=== PATIENT | female | born 1975 | race Caucasian/White ===

== ENCOUNTER 2016-07-01 11:51 | Emergency (ER) | payer OTHER ==
[~2016-07-01] VITALS: Ht 165.1 cm; Wt 78.0 kg
[~2016-07-01 11:51] MED LIST: 'XANAX1 MG PO; ALBUTEROL0.09 MG/A2 IH; AMOXICILLIN500 M2 PO; ANAPROX DS550 MG PO; AUGMENTIN 875 M1 TAB PO; AUGMENTIN 875875 MG PO; BENADRYL25 MG PO; CIPRODEX 0.3%-7.5 ML OT; CIPROFLOXACIN500 MG PO; CLARITIN10 MG PO; CLINDAMYCIN HC300 MG PO; COMPAZINE10 MG PO; DARVOCET N 1001 TAB PO; DIAZEPAM10 M1 PO; DOLOBID500 MG PO; DOXYCYCLINE MO100 MG PO; DURICEF500 MG PO; FLEXERIL10 MG PO; FLEXERIL5 MG PO; HYDROCODONE BIT1 T11 PO; HYDROXYZINE PAM50 MG PO; IBU800 M1 PO; KENALOG0.1% TP; LAMOTRIGINE25 M1 PO; LEVAQUIN750 MG PO; LOMOTIL 0.025 M1 TAB PO; MACROBID100 M1 PO; MEDROL DOSEPAK4 MG PO; MOTRIN800 MG PO; NAPROSYN500 MG PO; NORCO 325 MG-51 TAB PO; NORFLEX100 MG PO; PHENERGAN W/CO120 ML PO; PROZAC20 MG PO; Phenergan25 MG PO; QUETIAPINE FUMA50 M1 PO; SOMA350 MG PO; TESSALON PERLE200 MG PO; TRAMADOL HCL50 MG PO; ULTRAM50 MG PO; VITAMIN D1000 IU PO; ZANTAC150 MG PO; ZITHROMAX Z PA250 MG PO; ZYRTEC10 MG PO
[2016-07-01] MEDS ORDERED: KEFLEX500 M1 PO (12:36)
[2016-07-01] MEDS ORDERED: Motrin,Rufen800 MG PO (12:36)
== END 2016-07-01 12:46 | disposition home or self-care (01) ==
LOC: ED 11:51
DX: K08.89 Other specified disorders of teeth and supporting structures (principal); F17.200 Nicotine dependence, unspecified, uncomplicated; Z79.899 Other long term (current) drug therapy

== ENCOUNTER 2016-08-12 13:35 | Emergency (ER) | payer OTHER ==
[~2016-08-12] VITALS: Ht 165.1 cm; Wt 78.0 kg
[~2016-08-12 13:35] MED LIST changes: +KEFLEX500 M1 PO; +Motrin,Rufen800 MG PO
[2016-08-12] MEDS ORDERED: PREDNISONE10 MG PO (14:00)
== END 2016-08-12 14:11 | disposition home or self-care (01) ==
LOC: ED 13:35
DX: M54.10 Radiculopathy, site unspecified (principal); R03.0 Elevated blood-pressure reading, without diagnosis of hypertension; F17.200 Nicotine dependence, unspecified, uncomplicated; Z98.890 Other specified postprocedural states; Z98.51 Tubal ligation status; Z79.899 Other long term (current) drug therapy

== ENCOUNTER 2016-10-08 10:18 | Emergency (ER) | payer OTHER ==
[~2016-10-08] VITALS: Ht 165.1 cm; Wt 65.8 kg
[~2016-10-08 10:18] MED LIST changes: +PREDNISONE10 MG PO
== END 2016-10-08 11:15 | disposition home or self-care (01) ==
LOC: ED 10:18
DX: K59.00 Constipation, unspecified (principal); R10.9 Unspecified abdominal pain; F17.200 Nicotine dependence, unspecified, uncomplicated

== ENCOUNTER 2017-02-17 17:49 | Inpatient (IN) | payer OTHER ==
[~2017-02-17] VITALS: Ht 165.1 cm; Wt 79.9 kg
--- NOTE | ~2017-02-17 | EKG ---
[place], [place] ELECTROCARDIOGRAM REPORT NAME: BONNIE SCHNEIDER UNIT #: [id number] ROOM: 508 DOCTOR: MIRIAN GREEN,RAMA BIRTHDATE: [birth year] DOS: 02/17/2017 TIME: ____ hours. IMPRESSION: 1. Sinus rhythm. 2. Anterior ST-T changes, consider ischemia. RAMA VELA MD CM:[id number]:ELECTROCARDIOGRAM REPORT [id number] RAMA VELA MD
[2017-02-17 17:50] VITALS: BP 118/74
--- NOTE | 2017-02-17 18:34 | NUR ---
PT TO CT SCAN
[2017-02-17 18:52] LABS: BILIRUBIN NEGATIVE (NEGATIVE); BLOOD 2+ (NEGATIVE); CLARITY CLOUDY (CLEAR); COLOR YELLOW (YELLOW); GLUCOSE NEGATIVE (NEGATIVE); KETONE TRACE (NEGATIVE); LEUKO ESTERASE 2+ (NEGATIVE); NITRITE POSITIVE (NEGATIVE); PH 5.5 (5.0-9.0); SPECIFIC GRAVITY >= 1.030 (1.005-1.030)
[2017-02-17 18:59] VITALS: BP 127/74
[2017-02-17 18:59] LABS: BACTERIA 4+; MUCOUS TRACE; WBC TNTC wbc/hpf (0-5)
[2017-02-17 19:07] LABS: URINE AMPHETAMINES < 1000 (1000ng/ml); URINE BARBITURATES < 200 (200ng/ml); URINE BENZODIAZEPINES < 200 (200ng/ml); URINE CANNABINOIDS (THC) > 50 (50ng/ml); URINE COCAINE > 300 (300ng/ml); URINE METHADONE < 300 (300ng/ml); URINE OPIATES < 300 (300ng/ml)
[2017-02-17 19:14] LABS: URINE PHENCYCLIDINE < 25 (25ng/ml)
[2017-02-17 19:16] LABS: BASO % 0.4 % (0.0-1.0); EOS % 0.4 % (1.0-4.0); HEMATOCRIT 43.8 % (37.0-47.0); HEMOGLOBIN 14.7 g/dl (12.0-16.0); LYMPH # 2.5 10*3/uL (1.3-4.4); LYMPH % 22.2 % (27.0-41.0); MEAN CELL VOLUME 91.6 fl (81.0-99.0); MEAN CORPUSCULAR HGB 30.8 pg (27.0-31.0); MEAN CORPUSCULAR HGB CONC 33.6 g/dl (33.0-37.0); MEAN PLATELET VOLUME 10.9 fl (9.6-12.3); MONO # 0.6 10*3/uL (0.1-1.0); MONO % 5.3 % (3.0-9.0); NEUT # 7.9 10*3/uL (2.3-7.9); NEUT % 71.4 % (47.0-73.0); PLATELET COUNT AUTOMATED 244 10*3/uL (130-400); RED BLOOD COUNT 4.78 10*6/uL (4.10-5.10); RED CELL DISTRI WIDTH 13.3 % (0-14.5); WHITE BLOOD COUNT 11.1 10*3/uL (4.8-10.8)
[2017-02-17 19:33] LABS: ALKALINE PHOSPHATASE 110 U/L (45-117); BUN 12 mg/dl (7-24); CHLORIDE 103 mmol/L (98-107); POTASSIUM 3.5 mmol/L (3.5-5.1); SGOT/AST 14 IU/L (3-35); SGPT/ALT 17 U/L (12-78); SODIUM 138 mmol/L (136-145); TOTAL PROTEIN 7.8 gm/dL (6.4-8.2)
[2017-02-17 19:35] LABS: TROPONIN I < 0.015 ng/ml (<0.045)
[2017-02-17 19:57] VITALS: BP 130/63
[2017-02-17 20:28] VITALS: BP 116/70
--- NOTE | 2017-02-17 20:28 | NUR ---
[facility] 41, admitted to , under the services of CESILIA Bland DO with a diagnosis of UTI AND NEAR SYNCOPAL EPIOSODE. Chief complaint is PASSED OUT AT THE TABLE,. Patient arrived via ambulatory from ER. Monitor applied. Initial assessment completed. Vital signs taken and recorded. CESILIA BLAND DO notified of admission to the unit. Orders received. See assessment for past medical history, medications and allergies. Patient and/or family oriented to unit. [facility] visitation policy reviewed. Clothing/patient valuable form completed. CATALINA ALONZO
--- NOTE | 2017-02-17 20:35 | NUR ---
SPOKE WITH DR. ROMERO AT THIS TIME . INFOMRED DR. ROMERO THAT PER PATIENT SHE HAD NOT SEEN A PHYSICIAN SINCE DR. José Miguel FLORES RETIRED AND THAT SHE HAS NOT TAKEN ANY MEDICATIONS FOR SEVERLA MONTHS AND DOES NOT REMEBER WHAT SHE HAD TAKEN BEFORE.
--- NOTE | 2017-02-17 23:00 | NUR ---
ORTHOS DONE AT THIS TIME, NEGATIVE. PATIENT IS PLEASANT AND COOPERATIVE WITH CARE, RESPIRATIONS EASY/REG. NO SXS OF DISTRESS NOTED. FLUIDS MAINTAINED PER ORDER. CALL LIGHT IS IN REACH
[2017-02-18] VITALS: BP 100/59
--- NOTE | 2017-02-18 05:00 | NUR ---
SLEEPING, NO SXS OF DISTRESS. RESPIRATIONS EASY/REG. FLUIDS MAINTAINED PER ORDER. CALL LIGHT IS IN REACH.
[2017-02-18 05:58] LABS: BASO % 0.3 % (0.0-1.0); EOS # 0.2 10*3/uL (0.0-0.4); HEMATOCRIT 40.5 % (37.0-47.0); HEMOGLOBIN 13.6 g/dl (12.0-16.0); LYMPH # 3.6 10*3/uL (1.3-4.4); LYMPH % 38.3 % (27.0-41.0); MEAN CORPUSCULAR HGB 30.9 pg (27.0-31.0); MEAN CORPUSCULAR HGB CONC 33.6 g/dl (33.0-37.0); MEAN PLATELET VOLUME 10.5 fl (9.6-12.3); MONO # 0.8 10*3/uL (0.1-1.0); MONO % 8.2 % (3.0-9.0); NEUT # 4.8 10*3/uL (2.3-7.9); NEUT % 50.9 % (47.0-73.0); PLATELET COUNT AUTOMATED 214 10*3/uL (130-400); RED CELL DISTRI WIDTH 13.6 % (0-14.5); WHITE BLOOD COUNT 9.4 10*3/uL (4.8-10.8)
--- NOTE | 2017-02-18 06:20 | NUR ---
PATIENTS BROUGHT OUT TWO PILLS AND STATED "I THINK I KNOW WHAT MADE HER PASS OUT" HE FOUND THEM IN HER PANTS POCKET AND SAYS THEY ARE HIS BROTHERS SEROQUEL THAT SHE USED TO BE ON A WHILE AGO AND STOPPED TAKING. HE THINKS SHE TOOK THEM AND THATS WHAT MADE HER PASS OUT. THE PATIENT RELATIONS MANAGER WAS MADE AWARE AND STATED TO SEND THEM TO PHARMACY WHEN THEY OPEN SO THEY CAN ID THEM. WILL PASS ALONG TO NEXT SHIFT AND THEY WILL HAVE TO CALL THE DR WHEN PHARMACY IS ABLE TO IDENTIFY THE PILLS.
[2017-02-18 06:26] LABS: ALBUMIN 3.3 gm/dl (3.1-4.5); BUN 12 mg/dl (7-24); CHLORIDE 108 mmol/L (98-107); POTASSIUM 3.8 mmol/L (3.5-5.1); SODIUM 142 mmol/L (136-145)
[2017-02-18 06:32] LABS: INTERNATIONAL NORM RATIO 1.1 (2.0-3.5)
[2017-02-18 06:35] LABS: ALKALINE PHOSPHATASE 94 U/L (45-117); CHOLESTEROL 140 mg/dL (<200); CREATININE 0.87 mg/dL (0.55-1.02); FREE T4 1.08 ng/dl (0.76-1.46); HDL CHOLESTEROL 43 mg/dl (40-60); LDL CHOLESTEROL 83 mg/dL (9-159); PHOSPHOROUS 3.9 mg/dL (2.5-4.9); SGOT/AST 9 IU/L (3-35); SGPT/ALT 15 U/L (12-78); THYROID STIM HORMONE (HS) 0.374 uIU/ml (0.358-4.75); TOTAL PROTEIN 6.5 gm/dL (6.4-8.2); TRIGLYCERIDES 68 mg/dl (<150); VLDL CHOLESTEROL 14 mg/dL (6-40)
[2017-02-18 08:00] VITALS: BP 101/58
--- NOTE | 2017-02-18 08:00 | NUR ---
PATIENT IS SITTING UP IN BED EATING BREAKFAST. FAMILY MEMBERS ARE AT BEDSIDE. PATIENT DENIES DISCOMFORT AT THIS TIME. CALL LIGHT IS WITHIN REACH AND BED IS IN LOW POSITION.
[2017-02-18] MEDS ORDERED: VITAMIN D-32000 UNI1 PO (11:29)
[2017-02-18] MEDS ORDERED: DOXYCYCLINE100 M3 PO (11:29)
--- NOTE | 2017-02-18 12:43 | NUR ---
Discharge instructions reviewed with patient/family. Patient receptive and verbalizes understanding. Follow-up care arranged. Written instructions given to patient/family. [facility] REMOVED INTACT. MONITOR REMOVED. PATIENT AMBULATED OFF FLOOR. IRINEO BRIGHT
== END 2017-02-18 12:42 | disposition home or self-care (01) | DRG 312 ==
LOC: ED 17:49 → 5E 19:40 → EDHOLD 19:40 → 5E 19:49
PROVIDERS: Family Medicine; Nurse Practitioner Family; ADMIT Internal Medicine
DX: R55 Syncope and collapse (principal); N30.01 Acute cystitis with hematuria; D72.829 Elevated white blood cell count, unspecified; R73.9 Hyperglycemia, unspecified; E80.6 Other disorders of bilirubin metabolism; F14.10 Cocaine abuse, uncomplicated; F12.10 Cannabis abuse, uncomplicated; F17.200 Nicotine dependence, unspecified, uncomplicated; Z98.51 Tubal ligation status; Z82.49 Family history of ischemic heart disease and other diseases of the circulatory system; Z79.899 Other long term (current) drug therapy; Z79.2 Long term (current) use of antibiotics

== ENCOUNTER 2017-07-13 16:34 | Inpatient (IN) | payer OTHER ==
[2017-07-13] VITALS (7 sets, daily range): BP systolic 103–133; BP diastolic 52–87
[~2017-07-13] VITALS: Ht 165.1 cm; Wt 81.8 kg
[~2017-07-13 16:34] MED LIST changes: +DOXYCYCLINE100 M3 PO; +VITAMIN D-32000 UNI1 PO
[2017-07-13 16:57] LABS: BASO % 0.5 % (0.0-1.0); EOS # 0.1 10*3/uL (0.0-0.4); EOS % 0.9 % (1.0-4.0); HEMATOCRIT 41.4 % (37.0-47.0); HEMOGLOBIN 14.1 g/dl (12.0-16.0); LYMPH # 2.2 10*3/uL (1.3-4.4); LYMPH % 33.6 % (27.0-41.0); MEAN CORPUSCULAR HGB 31.7 pg (27.0-31.0); MEAN CORPUSCULAR HGB CONC 34.1 g/dl (33.0-37.0); MEAN PLATELET VOLUME 10.2 fl (9.6-12.3); MONO # 0.4 10*3/uL (0.1-1.0); MONO % 6.1 % (3.0-9.0); NEUT # 3.8 10*3/uL (2.3-7.9); NEUT % 58.7 % (47.0-73.0); PLATELET COUNT AUTOMATED 228 10*3/uL (130-400); RED BLOOD COUNT 4.45 10*6/uL (4.10-5.10); RED CELL DISTRI WIDTH 13.2 % (0-14.5); WHITE BLOOD COUNT 6.4 10*3/uL (4.8-10.8)
[2017-07-13 17:06] LABS: ACT PARTIAL THROMBO TIME 22.1 SECONDS (20.8-31.5); INTERNATIONAL NORM RATIO 1.1 (2.0-3.5)
[2017-07-13 17:15] LABS: ALBUMIN 3.9 gm/dl (3.1-4.5); ALKALINE PHOSPHATASE 107 U/L (45-117); BUN 10 mg/dl (7-24); CHLORIDE 110 mmol/L (98-107); CREATININE 0.79 mg/dL (0.55-1.02); POTASSIUM 4.2 mmol/L (3.5-5.1); SGOT/AST 11 IU/L (3-35); SGPT/ALT 16 U/L (12-78); SODIUM 144 mmol/L (136-145); TOTAL PROTEIN 7.2 gm/dL (6.4-8.2)
[2017-07-13 17:16] LABS: TROPONIN I < 0.015 ng/ml (<0.045)
[2017-07-14 00:16] VITALS: BP 116/81
[2017-07-14 06:09] LABS: BASO % 0.4 % (0.0-1.0); EOS # 0.2 10*3/uL (0.0-0.4); EOS % 2.7 % (1.0-4.0); HEMOGLOBIN 13.6 g/dl (12.0-16.0); LYMPH # 3.2 10*3/uL (1.3-4.4); LYMPH % 45.9 % (27.0-41.0); MEAN CELL VOLUME 94.5 fl (81.0-99.0); MEAN CORPUSCULAR HGB 31.3 pg (27.0-31.0); MEAN CORPUSCULAR HGB CONC 33.2 g/dl (33.0-37.0); MEAN PLATELET VOLUME 10.1 fl (9.6-12.3); MONO # 0.6 10*3/uL (0.1-1.0); MONO % 8.4 % (3.0-9.0); NEUT % 42.5 % (47.0-73.0); PLATELET COUNT AUTOMATED 210 10*3/uL (130-400); RED BLOOD COUNT 4.34 10*6/uL (4.10-5.10); RED CELL DISTRI WIDTH 13.2 % (0-14.5); WHITE BLOOD COUNT 7.1 10*3/uL (4.8-10.8)
[2017-07-14 06:38] LABS: ALBUMIN 3.5 gm/dl (3.1-4.5); ALKALINE PHOSPHATASE 101 U/L (45-117); BILIRUBIN, DIRECT 0.2 mg/dL (0.0-0.2); BUN 11 mg/dl (7-24); CHLORIDE 108 mmol/L (98-107); CHOLESTEROL 129 mg/dL (<200); CREATININE 0.85 mg/dL (0.55-1.02); HDL CHOLESTEROL 43 mg/dl (40-60); LDL CHOLESTEROL 72 mg/dL (9-159); PHOSPHOROUS 5.1 mg/dL (2.5-4.9); POTASSIUM 3.5 mmol/L (3.5-5.1); SGOT/AST 15 IU/L (3-35); SGPT/ALT 24 U/L (12-78); SODIUM 143 mmol/L (136-145); TOTAL PROTEIN 6.6 gm/dL (6.4-8.2); TRIGLYCERIDES 69 mg/dl (<150); VLDL CHOLESTEROL 14 mg/dL (6-40)
[2017-07-14 08:00] VITALS: BP 114/69
[2017-07-14 11:06] LABS: VITAMIN D, 25-HYDROXY 32.7 ng/mL (30-100)
[2017-07-14 12:00] VITALS: BP 108/61
[2017-07-14 13:59] LABS: BILIRUBIN NEGATIVE (NEGATIVE); BLOOD 2+ (NEGATIVE); CLARITY CLOUDY (CLEAR); COLOR YELLOW (YELLOW); GLUCOSE NEGATIVE (NEGATIVE); KETONE TRACE (NEGATIVE); LEUKO ESTERASE 2+ (NEGATIVE); NITRITE POSITIVE (NEGATIVE); PH 5.5 (5.0-9.0); SPECIFIC GRAVITY 1.025 (1.005-1.030); UROBILINOGEN 0.2 E.U./dl (0.2-1.0)
[2017-07-14 14:07] LABS: URINE AMPHETAMINES < 1000 (1000ng/ml); URINE BARBITURATES < 200 (200ng/ml); URINE BENZODIAZEPINES < 200 (200ng/ml); URINE CANNABINOIDS (THC) > 50 (50ng/ml); URINE COCAINE < 300 (300ng/ml); URINE METHADONE < 300 (300ng/ml); URINE OPIATES < 300 (300ng/ml)
[2017-07-14 14:08] LABS: URINE PHENCYCLIDINE < 25 (25ng/ml)
[2017-07-14 14:15] LABS: BACTERIA 4+; CALCIUM OXALATE CRYSTALS 2+; EPITHELIAL CELLS 25-30; WBC 31-40 wbc/hpf (0-5)
== END 2017-07-14 14:56 | disposition home or self-care (01) | DRG 392 ==
LOC: ED 16:34 → EDHOLD 20:48 → 5E 20:48
PROVIDERS: Emergency Medicine; Internal Medicine Nephrology
DX: K21.9 Gastro-esophageal reflux disease without esophagitis (principal); E83.41 Hypermagnesemia; R07.89 Other chest pain; I25.10 Atherosclerotic heart disease of native coronary artery without angina pectoris; F17.200 Nicotine dependence, unspecified, uncomplicated; I10 Essential (primary) hypertension; F17.210 Nicotine dependence, cigarettes, uncomplicated; R06.82 Tachypnea, not elsewhere classified; R00.1 Bradycardia, unspecified; E80.6 Other disorders of bilirubin metabolism; E66.9 Obesity, unspecified; Z68.26 Body mass index [BMI] 26.0-26.9, adult; Z82.49 Family history of ischemic heart disease and other diseases of the circulatory system; Z71.6 Tobacco abuse counseling; Z98.51 Tubal ligation status; Z98.891 History of uterine scar from previous surgery; I25.2 Old myocardial infarction; Z90.710 Acquired absence of both cervix and uterus

== ENCOUNTER 2017-07-24 14:43 | Emergency (ER) | payer OTHER ==
[~2017-07-24] VITALS: Ht 165.1 cm; Wt 84.4 kg
[2017-07-24 14:48] VITALS: BP 122/56
[2017-07-24 15:05] VITALS: BP 117/75
[2017-07-24 15:25] LABS: BASO % 0.5 % (0.0-1.0); EOS # 0.1 10*3/uL (0.0-0.4); EOS % 1.5 % (1.0-4.0); HEMATOCRIT 44.6 % (37.0-47.0); HEMOGLOBIN 15.1 g/dl (12.0-16.0); LYMPH # 3.3 10*3/uL (1.3-4.4); LYMPH % 38.8 % (27.0-41.0); MEAN CELL VOLUME 92.5 fl (81.0-99.0); MEAN CORPUSCULAR HGB 31.3 pg (27.0-31.0); MEAN CORPUSCULAR HGB CONC 33.9 g/dl (33.0-37.0); MEAN PLATELET VOLUME 9.8 fl (9.6-12.3); MONO # 0.5 10*3/uL (0.1-1.0); MONO % 6.1 % (3.0-9.0); NEUT # 4.5 10*3/uL (2.3-7.9); NEUT % 52.9 % (47.0-73.0); PLATELET COUNT AUTOMATED 234 10*3/uL (130-400); RED BLOOD COUNT 4.82 10*6/uL (4.10-5.10); RED CELL DISTRI WIDTH 12.7 % (0-14.5); WHITE BLOOD COUNT 8.4 10*3/uL (4.8-10.8)
[2017-07-24 15:27] VITALS: BP 117/79
[2017-07-24 15:34] LABS: ACT PARTIAL THROMBO TIME 22.3 SECONDS (20.8-31.5)
[2017-07-24 15:41] LABS: ALBUMIN 4.1 gm/dl (3.1-4.5); ALKALINE PHOSPHATASE 115 U/L (45-117); BUN 13 mg/dl (7-24); CHLORIDE 107 mmol/L (98-107); CREATININE 0.81 mg/dL (0.55-1.02); POTASSIUM 3.6 mmol/L (3.5-5.1); SGOT/AST 8 IU/L (3-35); SGPT/ALT 16 U/L (12-78); SODIUM 141 mmol/L (136-145); TOTAL PROTEIN 7.4 gm/dL (6.4-8.2)
[2017-07-24 15:42] LABS: TROPONIN I < 0.015 ng/ml (<0.045)
== END 2017-07-24 15:53 | disposition home or self-care (01) ==
LOC: ED 14:43 → EDHOLD 15:21 → ED 15:21 → EDHOLD 15:26 → 4E 15:26 → ED 15:53
PROVIDERS: Nurse Practitioner Family
DX: R07.89 Other chest pain (principal); F17.200 Nicotine dependence, unspecified, uncomplicated

== ENCOUNTER 2018-09-09 14:20 | Emergency (ER) | payer OTHER ==
[~2018-09-09] VITALS: Ht 165.1 cm; Wt 80.3 kg
[2018-09-09 14:55] LABS: BILIRUBIN NEGATIVE (NEGATIVE); BLOOD 3+ (NEGATIVE); CLARITY CLOUDY (CLEAR); COLOR YELLOW (YELLOW); GLUCOSE NEGATIVE (NEGATIVE); KETONE NEGATIVE (NEGATIVE); LEUKO ESTERASE 1+ (NEGATIVE); NITRITE NEGATIVE (NEGATIVE); UROBILINOGEN 0.2 E.U./dl (0.2-1.0)
[2018-09-09 15:10] LABS: BASO # 0.1 10*3/uL (0.0-0.1); BASO % 0.6 % (0.0-1.0); EOS # 0.2 10*3/uL (0.0-0.4); EOS % 1.7 % (1.0-4.0); HEMATOCRIT 44.6 % (37.0-47.0); HEMOGLOBIN 14.8 g/dl (12.0-16.0); LYMPH # 3.4 10*3/uL (1.3-4.4); MEAN CELL VOLUME 94.9 fl (81.0-99.0); MEAN CORPUSCULAR HGB 31.5 pg (27.0-31.0); MEAN CORPUSCULAR HGB CONC 33.2 g/dl (33.0-37.0); MEAN PLATELET VOLUME 10.1 fl (9.6-12.3); MONO # 0.6 10*3/uL (0.1-1.0); MONO % 7.3 % (3.0-9.0); NEUT # 4.4 10*3/uL (2.3-7.9); NEUT % 51.1 % (47.0-73.0); PLATELET COUNT AUTOMATED 245 10*3/uL (130-400); RED CELL DISTRI WIDTH 13.2 % (0-14.5); WHITE BLOOD COUNT 8.6 10*3/uL (4.8-10.8)
[2018-09-09 15:21] LABS: ACT PARTIAL THROMBO TIME 24.7 SECONDS (20.0-32.1); INTERNATIONAL NORM RATIO 0.9 (2.0-3.5)
[2018-09-09 15:25] LABS: ALBUMIN 3.6 gm/dl (3.1-4.5); ALKALINE PHOSPHATASE 115 U/L (45-117); BUN 18 mg/dl (7-24); CHLORIDE 107 mmol/L (98-107); CREATININE 0.82 mg/dL (0.55-1.02); POTASSIUM 4.2 mmol/L (3.5-5.1); SGOT/AST 13 IU/L (3-35); SGPT/ALT 23 U/L (12-78); SODIUM 141 mmol/L (136-145); T3 UPTAKE 37 % (31-39); THYROXINE (T4) TOTAL 7.3 ug/dl (4.8-13.9); TOTAL PROTEIN 7.2 gm/dL (6.4-8.2)
[2018-09-09 15:31] LABS: BACTERIA 2+; EPITHELIAL CELLS 40-50; RBC 31-40 rbc/hpf (0-2); WBC 31-40 wbc/hpf (0-5)
[2018-09-09 15:33] LABS: THYROID STIM HORMONE (HS) 0.898 uIU/ml (0.358-4.75)
[2018-09-09] MEDS ORDERED: SEPTDS PO (16:21)
== END 2018-09-09 16:26 ==
LOC: ED 14:20
PROVIDERS: Nurse Practitioner Family
DX: N93.9 Abnormal uterine and vaginal bleeding, unspecified (principal); N39.0 Urinary tract infection, site not specified; F17.200 Nicotine dependence, unspecified, uncomplicated; Z90.49 Acquired absence of other specified parts of digestive tract; Z90.721 Acquired absence of ovaries, unilateral

== ENCOUNTER 2019-10-29 14:39 | Emergency (ER) | payer OTHER ==
[~2019-10-29] VITALS: Ht 165.1 cm; Wt 70.3 kg
[~2019-10-29 14:39] MED LIST changes: +SEPTDS PO
== END 2019-10-29 16:30 | disposition home or self-care (01) ==
LOC: ED 14:39
DX: S02.2XXA Fracture of nasal bones, initial encounter for closed fracture (principal); F17.200 Nicotine dependence, unspecified, uncomplicated; Y04.2XXA Assault by strike against or bumped into by another person, initial encounter; Y93.89 Activity, other specified; Y92.89 Other specified places as the place of occurrence of the external cause; Y99.8 Other external cause status

== ENCOUNTER 2020-12-16 17:07 | Emergency (ER) | payer OTHER ==
[~2020-12-16] VITALS: Ht 165.1 cm; Wt 85.7 kg
[2020-12-16] MEDS ORDERED: Motrin,Rufen800 MG PO (19:30)
== END 2020-12-16 19:35 | disposition home or self-care (01) ==
LOC: ED 17:07
DX: G43.909 Migraine, unspecified, not intractable, without status migrainosus (principal); F17.200 Nicotine dependence, unspecified, uncomplicated; Z79.2 Long term (current) use of antibiotics; Z98.890 Other specified postprocedural states; Z87.42 Personal history of other diseases of the female genital tract; Z90.49 Acquired absence of other specified parts of digestive tract; Z98.51 Tubal ligation status

== ENCOUNTER 2023-03-12 15:20 | Emergency (ER) | payer OTHER ==
[~2023-03-12] VITALS: Ht 165.1 cm; Wt 72.6 kg
[2023-03-12] MEDS ORDERED: AMOX-CLAV 875-1 EACH PO (15:55)
[2023-03-12] MEDS ORDERED: CIPROFLOX-DEXA7.5 ML OT (15:55)
== END 2023-03-12 15:58 | disposition home or self-care (01) ==
LOC: ED 15:20
DX: H66.92 Otitis media, unspecified, left ear (principal); H60.92 Unspecified otitis externa, left ear; G43.909 Migraine, unspecified, not intractable, without status migrainosus; F17.210 Nicotine dependence, cigarettes, uncomplicated; Z98.890 Other specified postprocedural states; Z90.49 Acquired absence of other specified parts of digestive tract; Z87.42 Personal history of other diseases of the female genital tract; Z98.51 Tubal ligation status

== ENCOUNTER 2024-01-11 12:08 | Emergency (ER) | payer OTHER ==
[~2024-01-11] VITALS: Wt 79.4 kg
[~2024-01-11 12:08] MED LIST changes: +AMOX-CLAV 875-1 EACH PO; +CIPROFLOX-DEXA7.5 ML OT
[2024-01-11] MEDS ORDERED: MAGNESIUM CITRATE 296 ML BOT PO ONE (15:50)
== END 2024-01-11 15:52 | disposition home or self-care (01) ==
LOC: ED 12:08
DX: K56.41 Fecal impaction (principal); G43.909 Migraine, unspecified, not intractable, without status migrainosus; I10 Essential (primary) hypertension; F12.10 Cannabis abuse, uncomplicated; F14.90 Cocaine use, unspecified, uncomplicated; Z90.49 Acquired absence of other specified parts of digestive tract; Z98.890 Other specified postprocedural states; Z98.51 Tubal ligation status; Z72.0 Tobacco use